=== PATIENT | female | born 1950 | race Caucasian/White ===

== ENCOUNTER 2017-04-27 10:44 | Emergency (ER) | payer MEDICARE ==
--- NOTE | 2017-04-27 13:44 | UC ---
Skin Complaint HPI - HPI Summary HPI Summary: pt c/o tick bite to abdomen that she discovered on friday morning at 0300. Pt was able to remove complete tick at time and now has c/o tenderness at site of tick bite. - History of Current Complaint Chief Complaint: UCSkin Time Seen by Provider: 04/27/17 13:32 Stated Complaint: TICK BITE Hx Obtained From: Patient ?: No Onset/Duration: Sudden Onset, Lasting Hours Onset Severity: Mild Current Severity: Mild Location: Discrete - abdomen, Character: Redness Aggravating Factor(s): Touch Alleviating Factor(s): Unknown Associated Signs & Symptoms: Positive: Tenderness Related History: Possible Reaction to: Insect - Allergy/Home Medications Allergies/Adverse Reactions: Allergies Allergy/AdvReac Type Severity Reaction Status Date / Time Erythromycin AdvReac Nausea Verified 04/27/17 13:32 Home Medications: Home Medications Acetaminophen [Acetaminophen Extra Stren] 1,000 mg PO ONCE 04/27/17 [History Confirmed 04/27/17] Citalopram TAB* [Celexa TAB*] 20 mg PO DAILY 04/27/17 [History Confirmed ] Hydrochlorothiazide TAB* [Hydrodiuril TAB*] 25 mg PO DAILY 04/27/17 [History Confirmed 04/27/17] Metoprolol Tartrate [Lopressor] 100 mg PO DAILY 04/27/17 [History Confirmed ] Review of Systems Constitutional: Negative Skin: Other - erythema Eyes: Negative ENT: Negative Respiratory: Negative Cardiovascular: Negative Gastrointestinal: Negative Genitourinary: Negative Motor: Negative Neurovascular: Negative Musculoskeletal: Negative Neurological: Negative Psychological: Negative Is Patient Immunocompromised?: No All Other Systems Reviewed And Are Negative: Yes PMH/Surg Hx/FS Hx/Imm Hx Previously Healthy: Yes - Surgical History Surgical History: None - Family History Known Family History: Positive: Cardiac Disease - Social History Occupation: Retired Lives: With Family Alcohol Use: Weekly Substance Use Type: None Smoking Status (MU): Never Smoked Tobacco Have You Smoked in the Last Year: No Physical Exam Triage Information Reviewed: Yes Appearance: Well-Appearing Vital Signs: Initial Vital Signs Temp 98 F 04/27/17 13:24 Pulse 59 04/27/17 13:24 Resp 16 04/27/17 13:24 BP 173/102 04/27/17 13:24 Pulse Ox 100 04/27/17 13:24 Vital Signs Reviewed: Yes Eye Exam: Normal ENT Exam: Normal Dental Exam: Normal Neck exam: Normal Respiratory Exam: Normal Cardiovascular Exam: Normal Abdominal Exam: Other Abdomen Description: Positive: Other: - small erythematous circular area just below umbilicus, no abscess appreciated, non tender Musculoskeletal Exam: Normal Neurological Exam: Normal Psychological Exam: Normal Skin Exam: Other - small erythematous circular area just below umbilicus, no abscess appreciated, non tender, ~ 1 cm in diameter Course/Dx - Differential Diagnoses - Skin Complaint Differential Diagnoses: Allergic Reaction, Contact Dermatitis, Tick Born Illness - Diagnoses Provider Diagnoses: tick bite,. localized reaction Discharge - Discharge Plan Condition: Stable Disposition: HOME Prescriptions: DOXYcycline CAP(*) [DOXYcycline 100MG CAP(*)] 200 mg PO DAILY #2 cap Patient Education Materials: Tick Bite (ED) Additional Instructions: Please follow up with your PCP as needed. Please note that your Blood pressure was elevated at today's visit. Please follow up with your PCP regarding this finding.
== END 2017-04-27 14:17 | disposition home or self-care (01) ==
LOC: UCCORT 10:44
DX: S30.861A Insect bite (nonvenomous) of abdominal wall, initial encounter (principal); W57.XXXA Bitten or stung by nonvenomous insect and other nonvenomous arthropods, initial encounter; Y93.9 Activity, unspecified; Y92.9 Unspecified place or not applicable; Z88.1 Allergy status to other antibiotic agents
CPT/HCPCS: 99202; G0463

== ENCOUNTER 2024-04-16 07:32 | Observation (INO) ==
[~2024-04-16 07:32] MED LIST: Acetaminophen IV 1 GM/100ML 1,000 MG/100 ML BAG IV ONE; NS 0.45% 1000 ml BAG 1,000 ML IV SCH; Naloxone 0.4 mg VIAL 0.4 mg/ml 1 ml VIAL IV PRN
[2024-04-16 08:14] LABS: Rapid COVID-19 Molecular Undetected (Undetected)
[2024-04-16] MEDS ORDERED: ceFAZolin 2 GM PREMIX 2 GM/50 ML BAG ONE (08:31)
[2024-04-16] MEDS ORDERED: Tranexamic Acid 1 GM/100ML BAG 2,000 MG/200 ML BAG IV ONE (08:31)
[2024-04-16] MEDS: Lactated Ringers 1000 ml BAG 1,000 ML IV SCH ×2 (08:43→15:34)
[2024-04-16] MEDS: Buffered Lidocaine 1% SYRIN 1 ml INTRADERM ONE (08:43)
[2024-04-16] MEDS ORDERED: fentaNYL 100 mcg/2 ml 50 MCG/ML VIAL ONE ×2 (08:54→14:40)
[2024-04-16] MEDS ORDERED: ROPIVACAINE 5 MG/ML 30 ML BTL (0.5%) ONE ×2 (08:54→09:52)
[2024-04-16] MEDS ORDERED: Midazolam 5 mg/5 ml VIAL 1 mg/ml 5 ml VIAL (5 mg) ONE (08:54)
[2024-04-16 09:01] LABS: ABS Eosinophils 0.2 10^3/uL (0.0-0.5); ABS Lymphocytes 1.5 10^3/uL (1.0-4.8); ABS Monocytes 0.4 10^3/uL (0.0-0.9); ABS Neutrophils 3.2 10^3/uL (1.5-7.6); Eosinophil % 3.5 %; Hematocrit 42.1 % (35-45); Hemoglobin 14.3 g/dL (11.5-14.3); Lymphocyte % 27.4 %; Mean Corpuscular Hemoglobin 30.8 pg (27-33); Mean Corpuscular Hgb Conc 33.9 g/dL (31-36); Mean Corpuscular Volume 90.9 fL (80-97); Mean Platelet Volume 7.6 fL (7.5-11.2); Nucleated Red Blood Cells % 0.1 %/100WBC (0.0-0.8); Platelet Count 192 10^3/uL (150-450); Red Blood Count 4.62 10^6/uL (3.63-4.92); Red Cell Distribution Width 13.4 % (12-17); White Blood Count 5.3 10^3/uL (3.8-11.8)
[2024-04-16] MEDS ORDERED: Calcium Carb (TUMS) 500 mg CHEW TAB PO PRN (11:59)
[2024-04-16] MEDS ORDERED: Magnesium Hydroxide LIQ 30 ML UDC PO PRN (11:59)
[2024-04-16] MEDS ORDERED: Lactulose 30 ml UDC PO PRN (11:59)
[2024-04-16] MEDS ORDERED: Ondansetron 4 mg VIAL 2 MG/ML 2 ml VIAL IV PRN (11:59)
[2024-04-16] MEDS ORDERED: Ondansetron 4 mg VIAL 2 MG/ML 2 ml VIAL ONE (14:00)
[2024-04-16] MEDS: Ondansetron 4 mg VIAL 2 MG/ML 2 ml VIAL IV PRN ×2 (14:01→18:06)
[2024-04-16] MEDS: fentaNYL 100 mcg/2 ml 50 MCG/ML VIAL IV PRN (14:41)
[2024-04-16] MEDS ORDERED: Metoprolol Tartrate 5 mg VIAL 5 ml VIAL (1 mg/ml) IV PRN (15:42)
[2024-04-16] MEDS: Metoprolol Tartrate 5 mg VIAL 5 ml VIAL (1 mg/ml) IV ONE ×2 (16:24→16:40)
[2024-04-16] MEDS: Scopolamine 1 mg/72hr PATCH TRANSDERM SCH (17:03)
[2024-04-16] MEDS: Morphine 2 MG/ML SYRINGE IV PRN (18:06)
[2024-04-16] MEDS: Magnesium Hydroxide LIQ 30 ML UDC PO SCH (19:55)
[2024-04-16] MEDS: ceFAZolin 2 GM PREMIX 2 GM/50 ML BAG IV SCH (19:59)
[2024-04-17 06:18] LABS: Hemoglobin 12.7 g/dL (11.5-14.3); Mean Platelet Volume 7.8 fL (7.5-11.2); Platelet Count 168 10^3/uL (150-450)
[2024-04-17 06:38] LABS: Calcium 8.5 mg/dL (8.6-10.3); Creatinine, Serum 1.02 mg/dL (0.51-0.95); Potassium 4.2 mmol/L (3.5-5.0); eGFR CKD-EPI 57.4 (>60)
[2024-04-17] MEDS: Vitamin THERAPEUTIC TAB PO SCH (09:22)
[2024-04-17] MEDS ORDERED: Influenza Vaccine *TRI* 2024-25* 0.5 ML SYRINGE IM ONE (12:00)
[2024-04-18 08:16] LABS: Hematocrit 35.7 % (35-45); Hemoglobin 12.1 g/dL (11.5-14.3); Mean Platelet Volume 7.7 fL (7.5-11.2); Platelet Count 161 10^3/uL (150-450)
[2024-04-18] MEDS: Influenza Vaccine *TRI* 2024-25* 0.5 ML SYRINGE IM ONE (08:47)
[2024-04-18] MEDS: Ondansetron ODT 4 mg TAB 4 MG TAB PO PRN (08:59)
[2024-04-18 10:40] VITALS: BP 144/91
== END 2024-04-18 15:00 | disposition home or self-care (01) ==
LOC: OR 07:32 → INTOOBSV 15:21 → SSU 15:21
PROVIDERS: ADMIT Orthopaedic Surgery Adult Reconstructive Orthopaedic Surgery; ATTEND Orthopaedic Surgery Adult Reconstructive Orthopaedic Surgery